=== PATIENT | female | born 1985 | race Two or more races ===

== ENCOUNTER 2019-08-15 11:01 | Outpatient (CLI) | payer OTHER | END 2019-08-15 11:11 | disposition home or self-care (01) | LOC: SONOGRAMA 11:01 | DX: R10.31 Right lower quadrant pain (principal); E66.01 Morbid (severe) obesity due to excess calories; R00.0 Tachycardia, unspecified; I10 Essential (primary) hypertension ==

== ENCOUNTER 2019-09-09 09:20 | Outpatient (CLI) | payer OTHER | END 2019-09-09 09:25 | disposition home or self-care (01) | LOC: LAB 09:20 | PROVIDERS: ATTEND Surgery | DX: Z03.818 Encounter for observation for suspected exposure to other biological agents ruled out (principal); Z20.828 Contact with and (suspected) exposure to other viral communicable diseases ==

== ENCOUNTER 2021-11-17 09:12 | Emergency (ER) | payer OTHER ==
[~2021-11-17] VITALS: Ht 162.6 cm; Wt 82.6 kg
[2021-11-17] MEDS ORDERED: IRON18 MG PO (09:32)
[2021-11-17] MEDS ORDERED: VITABEX IRON C1 EACH PO (09:33)
== END 2021-11-17 16:15 | disposition home or self-care (01) ==
LOC: ER 09:12
DX: K80.20 Calculus of gallbladder without cholecystitis without obstruction (principal); R10.11 Right upper quadrant pain